=== PATIENT | male | born 1965 | race Caucasian/White ===

== ENCOUNTER 2019-11-30 21:45 | Inpatient (IN) | payer MEDICARE, BC ==
[~2019-11-30] VITALS: Ht 177.8 cm; Wt 91.6 kg
[2019-12-01] MEDS ORDERED: PROPOFOL 100 ML IV ONE ×2 (00:25→00:26)
[2019-12-01] MEDS ORDERED: PROPOFOL 100 ML IV PRN (00:39)
[2019-12-01] MEDS ORDERED: MIDAZOLAM HCL 50 MG in SODIUM CHLORIDE 0.9% 40 ML IV PRN (00:39)
[2019-12-01] MEDS ORDERED: DEXTROSE 50%, 50ML SYRINGE IVPush PRN (01:00)
[2019-12-01] MEDS ORDERED: GLUCAGON 1 MG IM PRN (01:00)
[2019-12-01] MEDS ORDERED: PHARMACY MAY ADJ FOR RENAL FX MC SCH (01:00)
[2019-12-01] MEDS ORDERED: DEXTROSE 4 GM TAB.CHEW PO PRN (01:00)
[2019-12-01] MEDS ORDERED: SCOPOLAMINE 1MG PATCH TD ONE (01:00)
[2019-12-01] MEDS ORDERED: PLEASE ENTER ALLERGIES MC SCH ×2 (01:00)
[2019-12-01] MEDS ORDERED: PLEASE ENTER HEIGHT AND WEIGHT MC SCH ×2 (01:00)
[2019-12-01] MEDS ORDERED: LIDOCAINE-MPF 1%, 2ML ENDO PRN (01:00)
[2019-12-01] MEDS ORDERED: SENNA/DOCUSATE TABLET NG PRN (01:00)
[2019-12-01] MEDS ORDERED: THIAMINE 100MG TABLET PO SCH (01:00)
[2019-12-01 01:25] LABS: BASOPHILS % (AUTO) 0 % (0-1); EOSINOPHILS # (AUTO) 0.05 x10^3/uL (0-0.4); EOSINOPHILS % (AUTO) 1 % (1-7); LYMPHOCYTES # (AUTO) 0.36 x10^3/uL (1-3.4); LYMPHOCYTES % (AUTO) 7 % (22-44); MD NO; MEAN CORPUSCULAR HGB CONC 34.8 g/dL (33.2-36.2); MEAN PLATELET VOLUME 6.6 fL (7.4-10.4); MONOCYTES # (AUTO) 0.32 x10^3/uL (0.2-0.8); MONOCYTES % (AUTO) 6 % (2-9); NEUTROPHILS # (AUTO) 4.74 x10^3/uL (1.8-6.8); NEUTROPHILS % (AUTO) 87 % (42-75); PLATELET COUNT 104 x10^3/uL (130-400); RED BLOOD COUNT 3.42 x10^6/uL (4.38-5.82); RED CELL DISTRIBUTION WIDTH 15.1 % (9.4-14.8)
[2019-12-01] MEDS ORDERED: SODIUM CHLORIDE 0.9% 1,000ML IVBOLUS ONE (01:30)
[2019-12-01] MEDS: FENTANYL PF 1,000 MCG in SODIUM CHLORIDE 0.9% 80 ML IV PRN ×2 (01:36→15:18)
[2019-12-01 01:38] LABS: ANION GAP 10 mmol/L (5-15); CALCIUM 8.1 mg/dL (8.5-10.1); CHLORIDE 113 mmol/L (98-107); CREATININE 1.12 mg/dL (0.7-1.3); TRIGLYCERIDES 162 mg/dL (50-200)
[2019-12-01 01:44] LABS: INTERNATIONAL NORMALIZED RATIO 1.02 (0.93-1.1); PROTHROMBIN TIME 10.5 Seconds (9.6-11.5)
[2019-12-01 02:19] LABS: BILIRUBIN, DIRECT 0.8 mg/dL (0.1-0.2)
[2019-12-01] MEDS: CHLORDIAZEPOXIDE 25 MG CAPSULE PO SCH ×5 (02:20→20:15)
[2019-12-01] MEDS: DIAZEPAM 5 MG/ML, 2ML IV SCH ×6 (02:20→23:37)
[2019-12-01 02:22] LABS: BILIRUBIN,INDIRECT 0.6 mg/dL (0.0-2.0); BILIRUBIN,TOTAL 1.4 mg/dL (0.2-1.0); TOTAL PROTEIN 6.1 g/dL (6.4-8.2)
[2019-12-01 02:32] VITALS: BP 105/75
[2019-12-01 04:00] VITALS: BP 112/81
[2019-12-01] MEDS: PROPOFOL 100 ML IV PRN ×4 (04:42→20:14)
[2019-12-01] MEDS ORDERED: MAGNESIUM SULFATE PMX 4GM/100M 100 ML IV ONE (07:30)
[2019-12-01] MEDS: THIAMINE 200 MG in SODIUM CHLORIDE 0.9% 50 ML IV SCH (08:31)
[2019-12-01] MEDS: SODIUM CHLORIDE FLUSH 10ML SYR IVF SCH ×2 (08:31→20:15)
[2019-12-01] MEDS: FOLIC ACID 1 MG TABLET PO SCH (08:31)
[2019-12-01] MEDS: PANTOPRAZOLE 40 MG IV IV SCH (08:31)
[2019-12-01] MEDS: ENOXAPARIN 40 MG/0.4 ML SQ SCH (11:12)
[2019-12-02] MEDS: PROPOFOL 100 ML IV PRN ×7 (00:38→23:31)
[2019-12-02 04:00] VITALS: BP 111/76
[2019-12-02 04:24] LABS: BASOPHILS # (AUTO) 0.02 x10^3/uL (0-0.1); BASOPHILS % (AUTO) 0 % (0-1); EOSINOPHILS # (AUTO) 0.13 x10^3/uL (0-0.4); EOSINOPHILS % (AUTO) 2 % (1-7); LYMPHOCYTES # (AUTO) 0.73 x10^3/uL (1-3.4); LYMPHOCYTES % (AUTO) 11 % (22-44); MD NO; MEAN CORPUSCULAR HEMOGLOBIN 34.2 pg (27.5-34.5); MEAN CORPUSCULAR HGB CONC 33.3 g/dL (33.2-36.2); MEAN PLATELET VOLUME 6.6 fL (7.4-10.4); MONOCYTES # (AUTO) 1.03 x10^3/uL (0.2-0.8); MONOCYTES % (AUTO) 15 % (2-9); NEUTROPHILS # (AUTO) 4.88 x10^3/uL (1.8-6.8); NEUTROPHILS % (AUTO) 72 % (42-75); PLATELET COUNT 131 x10^3/uL (130-400); RED BLOOD COUNT 3.44 x10^6/uL (4.38-5.82); RED CELL DISTRIBUTION WIDTH 14.9 % (9.4-14.8)
[2019-12-02 04:26] LABS: ANION GAP 10 mmol/L (5-15); CHLORIDE 109 mmol/L (98-107)
[2019-12-02 04:28] LABS: CREATININE 0.87 mg/dL (0.7-1.3)
[2019-12-02] MEDS: CHLORDIAZEPOXIDE 25 MG CAPSULE PO SCH ×3 (05:35→20:28)
[2019-12-02] MEDS: FENTANYL PF 1,000 MCG in SODIUM CHLORIDE 0.9% 80 ML IV PRN (06:23)
[2019-12-02] MEDS ORDERED: DIAZEPAM 5 MG/ML, 2ML ONE (07:20)
[2019-12-02 07:26] LABS: ALBUMIN 2.7 g/dL (3.4-5.0); BILIRUBIN, DIRECT 0.8 mg/dL (0.1-0.2)
[2019-12-02 07:28] LABS: BILIRUBIN,INDIRECT 0.7 mg/dL (0.0-2.0); BILIRUBIN,TOTAL 1.5 mg/dL (0.2-1.0); TOTAL PROTEIN 5.9 g/dL (6.4-8.2)
[2019-12-02] MEDS ORDERED: DIAZEPAM 5 MG/ML, 2ML IV SCH (07:30)
[2019-12-02] MEDS: FOLIC ACID 1 MG TABLET PO SCH (08:21)
[2019-12-02] MEDS: PANTOPRAZOLE 40 MG IV IV SCH (08:21)
[2019-12-02] MEDS: SODIUM CHLORIDE FLUSH 10ML SYR IVF SCH ×2 (08:21→20:29)
[2019-12-02] MEDS: THIAMINE 200 MG in SODIUM CHLORIDE 0.9% 50 ML IV SCH (09:01)
[2019-12-02] MEDS: ENOXAPARIN 40 MG/0.4 ML SQ SCH (11:46)
[2019-12-02] MEDS: POTASSIUM CHLORIDE 10% 40 MEQ/30 ML UDC PO SCH ×2 (11:46→20:27)
[2019-12-02] MEDS: OXYcodone IR 5MG TABLET PO SCH ×2 (14:49→20:32)
[2019-12-02] MEDS: DIAZEPAM 5 MG/ML, 2ML IV SCH ×2 (15:58→23:30)
[2019-12-03] MEDS: OXYcodone IR 5MG TABLET PO SCH ×4 (02:11→20:05)
[2019-12-03] MEDS: FENTANYL PF 1,000 MCG in SODIUM CHLORIDE 0.9% 80 ML IV PRN ×2 (02:12→21:46)
[2019-12-03] MEDS: PROPOFOL 100 ML IV PRN ×4 (02:50→20:55)
[2019-12-03 04:00] VITALS: BP 118/85
[2019-12-03 04:03] LABS: MEAN CORPUSCULAR HEMOGLOBIN 34.3 pg (27.5-34.5); MEAN CORPUSCULAR HGB CONC 33.4 g/dL (33.2-36.2); MEAN PLATELET VOLUME 6.6 fL (7.4-10.4); PLATELET COUNT 153 x10^3/uL (130-400); RED BLOOD COUNT 3.66 x10^6/uL (4.38-5.82)
[2019-12-03 04:04] LABS: ANION GAP 11 mmol/L (5-15); CHLORIDE 113 mmol/L (98-107); CREATININE 0.81 mg/dL (0.7-1.3)
[2019-12-03] MEDS: CHLORDIAZEPOXIDE 25 MG CAPSULE PO SCH ×3 (04:27→20:05)
[2019-12-03 05:52] LABS: BASOPHILS % (AUTO) 0 % (0-1); EOSINOPHILS % (AUTO) 2 % (1-7); LYMPHOCYTES # (AUTO) 0.43 x10^3/uL (1-3.4); LYMPHOCYTES % (AUTO) 7 % (22-44); MD SCAN; MONOCYTES # (AUTO) 0.85 x10^3/uL (0.2-0.8); MONOCYTES % (AUTO) 13 % (2-9); NEUTROPHILS # (AUTO) 5.19 x10^3/uL (1.8-6.8); NEUTROPHILS % (AUTO) 79 % (42-75)
[2019-12-03] MEDS ORDERED: ACETAMINOPHEN 650 MG/20.3 ML UDC ONE (07:32)
[2019-12-03] MEDS ORDERED: ACETAMINOPHEN 325 MG TABLET PO PRN (08:00)
[2019-12-03] MEDS: ENOXAPARIN 40 MG/0.4 ML SQ SCH (08:51)
[2019-12-03] MEDS: THIAMINE 200 MG in SODIUM CHLORIDE 0.9% 50 ML IV SCH (08:51)
[2019-12-03] MEDS: PANTOPRAZOLE 40 MG IV IV SCH (08:51)
[2019-12-03] MEDS: SODIUM CHLORIDE FLUSH 10ML SYR IVF SCH ×2 (08:51→20:06)
[2019-12-03] MEDS: FOLIC ACID 1 MG TABLET PO SCH (08:51)
[2019-12-03] MEDS: PIPERACILLIN/TAZO/PMX 3.375GM 50 ML IV SCH ×3 (09:02→20:06)
[2019-12-03 09:58] LABS: MICROSCOPIC INDICATED
[2019-12-03] MEDS ORDERED: SODIUM CHLORIDE 0.9%, 500ML IVBOLUS ONE (14:00)
[2019-12-03] MEDS ORDERED: LACTATED RINGERS 1,000 ML IVBOLUS ONE ×2 (16:00)
[2019-12-03] MEDS: PREGABALIN 25 MG CAPSULE PO SCH (20:06)
[2019-12-04] MEDS: OXYcodone IR 5MG TABLET PO SCH ×4 (02:32→18:25)
[2019-12-04] MEDS: PIPERACILLIN/TAZO/PMX 3.375GM 50 ML IV SCH ×4 (02:52→20:39)
[2019-12-04 04:29] VITALS: BP 90/57
[2019-12-04] MEDS: CHLORDIAZEPOXIDE 25 MG CAPSULE PO SCH ×3 (04:33→22:58)
[2019-12-04 04:52] LABS: ANION GAP 10 mmol/L (5-15); CALCIUM 7.9 mg/dL (8.5-10.1); CHLORIDE 113 mmol/L (98-107); CREATININE 0.99 mg/dL (0.7-1.3); TRIGLYCERIDES 307 mg/dL (50-200)
[2019-12-04 05:00] LABS: MEAN CORPUSCULAR HEMOGLOBIN 33.9 pg (27.5-34.5); MEAN CORPUSCULAR HGB CONC 33.3 g/dL (33.2-36.2); MEAN PLATELET VOLUME 6.3 fL (7.4-10.4); PLATELET COUNT 192 x10^3/uL (130-400); RED BLOOD COUNT 3.22 x10^6/uL (4.38-5.82); RED CELL DISTRIBUTION WIDTH 14.7 % (9.4-14.8)
[2019-12-04 05:54] LABS: MD YES
[2019-12-04 05:56] LABS: BANDS%(MANUAL) 9 % (0-7); EOS% (MANUAL) 3 % (1-7); LYMPH#(MANUAL) 1.01 x10^3/uL (1-3.4); LYMPHS% (MANUAL) 15 % (22-44); METAMYELOCYTES% (MANUAL) 3 % (0-1); MONOS#(MANUAL) 0.67 x10^3/uL (0.3-2.7); MONOS% (MANUAL) 10 % (2-9); MYELOCYTES# (MANUAL) 0.07 x10^3/uL (0-0); MYELOCYTES% (MANUAL) 1 % (0-0); SEG#(MANUAL) 3.95 x10^3/uL (1.8-6.8); SEGS% (MANUAL) 59 % (42-75)
[2019-12-04 05:57] LABS: <PLATELET ESTIMATE> ADEQUATE; <PLT MORPHOLOGY> NORMAL PLT MORPH; POLYCHROMASIA 1+
[2019-12-04 05:58] LABS: TOXIC GRAN 1+
[2019-12-04] MEDS ORDERED: POTASSIUM CHLORIDE 10% 40 MEQ/30 ML UDC PO ONE (07:00)
[2019-12-04] MEDS: PROPOFOL 100 ML IV PRN ×3 (08:28→17:00)
[2019-12-04] MEDS: PREGABALIN 25 MG CAPSULE PO SCH (08:46)
[2019-12-04] MEDS: SODIUM CHLORIDE FLUSH 10ML SYR IVF SCH ×2 (08:47→20:39)
[2019-12-04] MEDS: FOLIC ACID 1 MG TABLET PO SCH (08:47)
[2019-12-04] MEDS: PANTOPRAZOLE 40 MG IV IV SCH (08:47)
[2019-12-04] MEDS: DIAZEPAM 5 MG/ML, 2ML IV PRN ×2 (09:10→15:18)
[2019-12-04] MEDS: THIAMINE 200 MG in SODIUM CHLORIDE 0.9% 50 ML IV SCH (09:11)
[2019-12-04] MEDS: ENOXAPARIN 40 MG/0.4 ML SQ SCH (12:15)
[2019-12-04] MEDS: MIDAZOLAM 1 MG/ML, 2ML IVPush PRN ×3 (13:51→19:37)
[2019-12-04] MEDS: PREGABALIN 75 MG CAPSULE PO SCH ×2 (16:03→20:39)
[2019-12-04 19:50] VITALS: BP 103/66
[2019-12-05] MEDS: DIAZEPAM 5 MG/ML, 2ML IV PRN ×3 (00:03→19:29)
[2019-12-05] MEDS: OXYcodone IR 5MG TABLET PO SCH ×4 (01:57→19:34)
[2019-12-05] MEDS: PROPOFOL 100 ML IV PRN (01:59)
[2019-12-05] MEDS: PIPERACILLIN/TAZO/PMX 3.375GM 50 ML IV SCH (04:16)
[2019-12-05 04:17] VITALS: BP 99/71
[2019-12-05 04:27] LABS: MEAN CORPUSCULAR HEMOGLOBIN 34.7 pg (27.5-34.5); MEAN PLATELET VOLUME 6.4 fL (7.4-10.4); PLATELET COUNT 213 x10^3/uL (130-400); RED BLOOD COUNT 2.96 x10^6/uL (4.38-5.82); RED CELL DISTRIBUTION WIDTH 14.4 % (9.4-14.8)
[2019-12-05 04:32] LABS: ANION GAP 7 mmol/L (5-15); CALCIUM 8.7 mg/dL (8.5-10.1); CHLORIDE 110 mmol/L (98-107); CREATININE 1.07 mg/dL (0.7-1.3)
[2019-12-05] MEDS: MIDAZOLAM 1 MG/ML, 2ML IVPush PRN (04:46)
[2019-12-05 04:50] LABS: MD YES
[2019-12-05 04:52] LABS: BAND#(MANUAL) 0.24 x10^3/uL; BANDS%(MANUAL) 5 % (0-7); EOS% (MANUAL) 2 % (1-7); LYMPH#(MANUAL) 0.82 x10^3/uL (1-3.4); LYMPHS% (MANUAL) 17 % (22-44); METAMYELOCYTES# (MANUAL) 0.05 x10^3/uL (0-0); METAMYELOCYTES% (MANUAL) 1 % (0-1); MONOS#(MANUAL) 0.38 x10^3/uL (0.3-2.7); MONOS% (MANUAL) 8 % (2-9); MYELOCYTES# (MANUAL) 0.05 x10^3/uL (0-0); MYELOCYTES% (MANUAL) 1 % (0-0); SEG#(MANUAL) 3.17 x10^3/uL (1.8-6.8); SEGS% (MANUAL) 66 % (42-75)
[2019-12-05 04:53] LABS: TOXIC GRAN 1+
[2019-12-05 04:54] LABS: <PLATELET ESTIMATE> ADEQUATE; <PLT MORPHOLOGY> NORMAL PLT MORPH
[2019-12-05] MEDS: CHLORDIAZEPOXIDE 25 MG CAPSULE PO SCH (06:06)
[2019-12-05] MEDS: PANTOPRAZOLE 40 MG IV IV SCH (08:29)
[2019-12-05] MEDS: ENOXAPARIN 40 MG/0.4 ML SQ SCH (08:29)
[2019-12-05] MEDS: PREGABALIN 75 MG CAPSULE PO SCH ×3 (08:30→21:11)
[2019-12-05] MEDS: DEXMEDETOMIDINE 400 MCG in SODIUM CHLORIDE 0.9% 96 ML IV PRN ×3 (08:30→21:24)
[2019-12-05] MEDS: THIAMINE 200 MG in SODIUM CHLORIDE 0.9% 50 ML IV SCH (08:30)
[2019-12-05] MEDS ORDERED: LACTULOSE 20 GM/30 ML UDC PO PRN (09:00)
[2019-12-05] MEDS: FOLIC ACID 1 MG TABLET PO SCH (09:18)
[2019-12-05] MEDS: DOCUSATE 50 MG/5 ML, 10ML UDC NG SCH (09:22)
[2019-12-05] MEDS: SODIUM CHLORIDE FLUSH 10ML SYR IVF SCH ×2 (09:24→21:11)
[2019-12-05] MEDS ORDERED: MAGNESIUM SULFATE PMX 2GM/50ML 50 ML IV ONE (09:30)
[2019-12-05] MEDS ORDERED: POTASSIUM CHLORIDE 10% 20 MEQ/15 ML UDC PO ONE (09:30)
[2019-12-05] MEDS ORDERED: POTASSIUM PHOSPHATE 22 MEQ in SODIUM CHLORIDE 0.9% 500 ML IV ONE (10:00)
[2019-12-05] MEDS ORDERED: CHLORDIAZEPOXIDE 25 MG CAPSULE PO PRN (16:00)
[2019-12-05] MEDS: CHLORDIAZEPOXIDE 25 MG CAPSULE PO/NG SCH (16:17)
[2019-12-05] MEDS ORDERED: BISACODYL 10 MG SUPP PR PRN (21:00)
[2019-12-05] MEDS: SENNA 176 MG/5 ML ORAL SOL NG SCH (21:11)
[2019-12-06] MEDS: OXYcodone IR 5MG TABLET PO SCH ×4 (01:25→19:30)
[2019-12-06] MEDS: CHLORDIAZEPOXIDE 25 MG CAPSULE PO/NG SCH ×3 (01:25→20:00)
[2019-12-06] MEDS: DEXMEDETOMIDINE 400 MCG in SODIUM CHLORIDE 0.9% 96 ML IV PRN ×4 (03:16→20:28)
[2019-12-06 04:00] VITALS: BP 135/86
[2019-12-06 05:02] LABS: CHLORIDE 110 mmol/L (98-107)
[2019-12-06 05:08] LABS: ANION GAP 8 mmol/L (5-15); CALCIUM 8.7 mg/dL (8.5-10.1); CREATININE 0.93 mg/dL (0.7-1.3)
[2019-12-06 05:35] LABS: BASOPHILS # (AUTO) 0.03 x10^3/uL (0-0.1); BASOPHILS % (AUTO) 1 % (0-1); EOSINOPHILS % (AUTO) 2 % (1-7); LYMPHOCYTES # (AUTO) 0.48 x10^3/uL (1-3.4); LYMPHOCYTES % (AUTO) 10 % (22-44); MD NO; MEAN CORPUSCULAR HEMOGLOBIN 33.6 pg (27.5-34.5); MEAN CORPUSCULAR HGB CONC 33.2 g/dL (33.2-36.2); MEAN PLATELET VOLUME 6.4 fL (7.4-10.4); MONOCYTES # (AUTO) 0.66 x10^3/uL (0.2-0.8); MONOCYTES % (AUTO) 13 % (2-9); NEUTROPHILS # (AUTO) 3.77 x10^3/uL (1.8-6.8); NEUTROPHILS % (AUTO) 75 % (42-75); PLATELET COUNT 333 x10^3/uL (130-400); RED BLOOD COUNT 3.25 x10^6/uL (4.38-5.82)
[2019-12-06] MEDS: LEVOFLOXACIN/PMX 500MG/100ML 100 ML IV SCH (06:47)
[2019-12-06] MEDS: PREGABALIN 75 MG CAPSULE PO SCH ×3 (07:48→21:00)
[2019-12-06] MEDS: SODIUM CHLORIDE FLUSH 10ML SYR IVF SCH ×2 (07:49→21:05)
[2019-12-06] MEDS: DOCUSATE 50 MG/5 ML, 10ML UDC NG SCH (07:49)
[2019-12-06] MEDS: PANTOPRAZOLE 40 MG IV IV SCH (07:49)
[2019-12-06] MEDS: ENOXAPARIN 40 MG/0.4 ML SQ SCH (07:49)
[2019-12-06] MEDS: FOLIC ACID 1 MG TABLET PO SCH (07:50)
[2019-12-06] MEDS: MIDAZOLAM 1 MG/ML, 2ML IVPush PRN (08:59)
[2019-12-06] MEDS ORDERED: SODIUM CHLORIDE 0.9%, 500ML IVBOLUS ONE (10:30)
[2019-12-06] MEDS ORDERED: MIDAZOLAM 1 MG/ML, 5ML IVPush ONE (14:00)
[2019-12-06] MEDS: SENNA 176 MG/5 ML ORAL SOL NG SCH (21:00)
[2019-12-07] MEDS: OXYcodone IR 5MG TABLET PO SCH ×4 (01:30→19:19)
[2019-12-07 04:00] VITALS: BP 156/80
[2019-12-07] MEDS: DEXMEDETOMIDINE 400 MCG in SODIUM CHLORIDE 0.9% 96 ML IV PRN ×2 (04:49→17:09)
[2019-12-07 05:18] LABS: ANION GAP 6 mmol/L (5-15); CHLORIDE 111 mmol/L (98-107); CREATININE 1.12 mg/dL (0.7-1.3)
[2019-12-07 05:23] LABS: BASOPHILS # (AUTO) 0.04 x10^3/uL (0-0.1); BASOPHILS % (AUTO) 1 % (0-1); EOSINOPHILS # (AUTO) 0.05 x10^3/uL (0-0.4); EOSINOPHILS % (AUTO) 1 % (1-7); LYMPHOCYTES # (AUTO) 0.74 x10^3/uL (1-3.4); LYMPHOCYTES % (AUTO) 12 % (22-44); MD NO; MEAN CORPUSCULAR HEMOGLOBIN 34.2 pg (27.5-34.5); MEAN PLATELET VOLUME 6.2 fL (7.4-10.4); MONOCYTES # (AUTO) 0.97 x10^3/uL (0.2-0.8); MONOCYTES % (AUTO) 15 % (2-9); NEUTROPHILS # (AUTO) 4.56 x10^3/uL (1.8-6.8); NEUTROPHILS % (AUTO) 72 % (42-75); PLATELET COUNT 425 x10^3/uL (130-400); RED BLOOD COUNT 3.25 x10^6/uL (4.38-5.82); RED CELL DISTRIBUTION WIDTH 14.8 % (9.4-14.8)
[2019-12-07] MEDS: LEVOFLOXACIN/PMX 500MG/100ML 100 ML IV SCH (07:24)
[2019-12-07] MEDS: CHLORDIAZEPOXIDE 25 MG CAPSULE PO/NG SCH (08:00)
[2019-12-07] MEDS: PANTOPRAZOLE 40 MG IV IV SCH (08:24)
[2019-12-07] MEDS: ENOXAPARIN 40 MG/0.4 ML SQ SCH (08:24)
[2019-12-07] MEDS: SODIUM CHLORIDE FLUSH 10ML SYR IVF SCH ×2 (08:25→21:36)
[2019-12-07] MEDS: FOLIC ACID 1 MG TABLET PO SCH (09:00)
[2019-12-07] MEDS: PREGABALIN 75 MG CAPSULE PO SCH ×3 (09:00→21:00)
[2019-12-07] MEDS: DOCUSATE 50 MG/5 ML, 10ML UDC NG SCH (09:00)
[2019-12-07] MEDS: THIAMINE 200 MG in SODIUM CHLORIDE 0.9% 50 ML IV SCH (09:16)
[2019-12-07] MEDS ORDERED: DIAZEPAM 5 MG/ML, 2ML IV PRN (09:30)
[2019-12-07] MEDS ORDERED: cloniDINE 0.1MG PATCH TD SCH (12:00)
[2019-12-07] MEDS ORDERED: PHENOBARBITAL SODIUM 730 MG in SODIUM CHLORIDE 0.9% 50 ML IV ONE (13:00)
[2019-12-07] MEDS ORDERED: PHENOBARBITAL ETOH DETOX PER PHARMACY MC PRN (13:00)
[2019-12-07] MEDS: PHENOBARBITAL SODIUM 65 MG/ML, 1ML IM SCH (21:39)
[2019-12-08] MEDS: OXYcodone IR 5MG TABLET PO SCH ×4 (01:30→20:48)
[2019-12-08 04:00] VITALS: BP 125/89
[2019-12-08 04:52] LABS: MEAN CORPUSCULAR HEMOGLOBIN 33.5 pg (27.5-34.5); MEAN CORPUSCULAR HGB CONC 32.9 g/dL (33.2-36.2); MEAN PLATELET VOLUME 6.2 fL (7.4-10.4); PLATELET COUNT 456 x10^3/uL (130-400); RED BLOOD COUNT 3.35 x10^6/uL (4.38-5.82); RED CELL DISTRIBUTION WIDTH 14.5 % (9.4-14.8)
[2019-12-08 05:02] LABS: ALBUMIN 2.7 g/dL (3.4-5.0); ANION GAP 6 mmol/L (5-15); CALCIUM 9.1 mg/dL (8.5-10.1); CHLORIDE 112 mmol/L (98-107)
[2019-12-08 05:06] LABS: ALANINE AMINOTRANSFERASE 75 U/L (12-78); ALKALINE PHOSPHATASE 208 U/L (45-117); BILIRUBIN, DIRECT 0.5 mg/dL (0.1-0.2); BILIRUBIN,INDIRECT 0.3 mg/dL (0.0-2.0); BILIRUBIN,TOTAL 0.8 mg/dL (0.2-1.0); CREATININE 0.98 mg/dL (0.7-1.3); TOTAL PROTEIN 6.8 g/dL (6.4-8.2)
[2019-12-08 05:28] LABS: MD YES
[2019-12-08 05:31] LABS: ANISOCYTOSIS 1+; BAND#(MANUAL) 0.07 x10^3/uL; BANDS%(MANUAL) 1 % (0-7); BASOS#(MANUAL) 0.07 x10^3/uL (0-0.1); BASOS% (MANUAL) 1 % (0-1); EOS% (MANUAL) 3 % (1-7); LYMPH#(MANUAL) 0.91 x10^3/uL (1-3.4); LYMPHS% (MANUAL) 14 % (22-44); METAMYELOCYTES# (MANUAL) 0.33 x10^3/uL (0-0); METAMYELOCYTES% (MANUAL) 5 % (0-1); MONOS#(MANUAL) 0.65 x10^3/uL (0.3-2.7); MONOS% (MANUAL) 10 % (2-9); MYELOCYTES# (MANUAL) 0.13 x10^3/uL (0-0); MYELOCYTES% (MANUAL) 2 % (0-0); PROGRANULOCYTES# (MANUAL) 0.07 x10^3/uL (0-0); PROGRANULOCYTES% (MANUAL) 1 % (0-0); SEGS% (MANUAL) 63 % (42-75)
[2019-12-08 05:32] LABS: <PLATELET ESTIMATE> INCREASED; SMALL PLATELETS 1+
[2019-12-08] MEDS: DEXMEDETOMIDINE 400 MCG in SODIUM CHLORIDE 0.9% 96 ML IV PRN ×4 (06:19→21:12)
[2019-12-08] MEDS: LEVOFLOXACIN/PMX 500MG/100ML 100 ML IV SCH (06:32)
[2019-12-08] MEDS: PANTOPRAZOLE 40 MG IV IV SCH (09:06)
[2019-12-08] MEDS: PHENOBARBITAL SODIUM 65 MG/ML, 1ML IM SCH ×2 (09:17→20:47)
[2019-12-08] MEDS: ENOXAPARIN 40 MG/0.4 ML SQ SCH (09:17)
[2019-12-08] MEDS: FOLIC ACID 1 MG TABLET PO SCH (09:33)
[2019-12-08] MEDS: PREGABALIN 75 MG CAPSULE PO SCH ×3 (09:33→20:47)
[2019-12-08] MEDS: DOCUSATE 50 MG/5 ML, 10ML UDC NG SCH (09:33)
[2019-12-08] MEDS: SODIUM CHLORIDE FLUSH 10ML SYR IVF SCH ×2 (09:34→20:46)
[2019-12-08] MEDS: THIAMINE 200 MG in SODIUM CHLORIDE 0.9% 50 ML IV SCH (10:50)
--- NOTE | 2019-12-08 13:26 | NUR ---
Patient would benefit from ongoing skilled [facility] services in [facility] Addendum: 12/08/19 at 1327 by SANTA GODINEZ Amended: Links added.
[2019-12-09 03:22] VITALS: BP 136/94
[2019-12-09] MEDS: OXYcodone IR 5MG TABLET PO SCH ×4 (03:23→23:20)
[2019-12-09 05:09] LABS: MEAN CORPUSCULAR HEMOGLOBIN 33.6 pg (27.5-34.5); MEAN CORPUSCULAR HGB CONC 33.1 g/dL (33.2-36.2); RED BLOOD COUNT 3.42 x10^6/uL (4.38-5.82); RED CELL DISTRIBUTION WIDTH 14.6 % (9.4-14.8)
[2019-12-09 05:11] LABS: ANION GAP 7 mmol/L (5-15); CALCIUM 8.5 mg/dL (8.5-10.1); CHLORIDE 110 mmol/L (98-107); CREATININE 0.99 mg/dL (0.7-1.3)
[2019-12-09 05:45] LABS: MD YES; MEAN PLATELET VOLUME 6.1 fL (7.4-10.4); PLATELET COUNT 526 x10^3/uL (130-400)
[2019-12-09 05:49] LABS: BAND#(MANUAL) 0.09 x10^3/uL; BANDS%(MANUAL) 1 % (0-7); BASOS#(MANUAL) 0.09 x10^3/uL (0-0.1); BASOS% (MANUAL) 1 % (0-1); EOS#(MANUAL) 0.09 x10^3/uL (0.0-0.4); EOS% (MANUAL) 1 % (1-7); LYMPH#(MANUAL) 1.25 x10^3/uL (1-3.4); LYMPHS% (MANUAL) 14 % (22-44); METAMYELOCYTES# (MANUAL) 0.09 x10^3/uL (0-0); METAMYELOCYTES% (MANUAL) 1 % (0-1); MONOS#(MANUAL) 0.45 x10^3/uL (0.3-2.7); MONOS% (MANUAL) 5 % (2-9); SEG#(MANUAL) 6.85 x10^3/uL (1.8-6.8); SEGS% (MANUAL) 77 % (42-75)
[2019-12-09 05:50] LABS: ANISOCYTOSIS 1+; POLYCHROMASIA 1+
[2019-12-09 05:51] LABS: <PLATELET ESTIMATE> INCREASED; <PLT MORPHOLOGY> NORMAL PLT MORPH
[2019-12-09] MEDS: LEVOFLOXACIN/PMX 500MG/100ML 100 ML IV SCH (06:25)
[2019-12-09] MEDS: PANTOPRAZOLE 40 MG IV IV SCH (08:49)
[2019-12-09] MEDS: ENOXAPARIN 40 MG/0.4 ML SQ SCH (08:49)
[2019-12-09] MEDS: PHENOBARBITAL SODIUM 65 MG/ML, 1ML IM SCH (08:49)
[2019-12-09] MEDS: SODIUM CHLORIDE FLUSH 10ML SYR IVF SCH ×2 (08:50→23:21)
[2019-12-09] MEDS: THIAMINE 200 MG in SODIUM CHLORIDE 0.9% 50 ML IV SCH (08:50)
[2019-12-09] MEDS: PREGABALIN 75 MG CAPSULE PO SCH ×3 (09:21→23:20)
[2019-12-09] MEDS: FOLIC ACID 1 MG TABLET PO SCH (09:21)
[2019-12-09] MEDS: DOCUSATE 50 MG/5 ML, 10ML UDC NG SCH (09:21)
[2019-12-09] MEDS ORDERED: ZIPRASIDONE 20 MG INJ IM PRN (14:00)
[2019-12-09 18:49] VITALS: BP 113/73
[2019-12-10] MEDS: PHENOBARBITAL SODIUM 65 MG/ML, 1ML IM SCH ×3 (00:15→21:17)
[2019-12-10 00:41] VITALS: BP 108/69
[2019-12-10] MEDS: OXYcodone IR 5MG TABLET PO SCH ×4 (03:55→21:17)
[2019-12-10 04:31] LABS: BASOPHILS # (AUTO) 0.16 x10^3/uL (0-0.1); BASOPHILS % (AUTO) 2 % (0-1); EOSINOPHILS # (AUTO) 0.11 x10^3/uL (0-0.4); EOSINOPHILS % (AUTO) 2 % (1-7); LYMPHOCYTES # (AUTO) 1.14 x10^3/uL (1-3.4); LYMPHOCYTES % (AUTO) 16 % (22-44); MD NO; MEAN CORPUSCULAR HEMOGLOBIN 33.3 pg (27.5-34.5); MEAN CORPUSCULAR HGB CONC 32.6 g/dL (33.2-36.2); MEAN PLATELET VOLUME 6.2 fL (7.4-10.4); MONOCYTES # (AUTO) 0.99 x10^3/uL (0.2-0.8); MONOCYTES % (AUTO) 14 % (2-9); NEUTROPHILS # (AUTO) 4.65 x10^3/uL (1.8-6.8); NEUTROPHILS % (AUTO) 66 % (42-75); PLATELET COUNT 610 x10^3/uL (130-400); RED CELL DISTRIBUTION WIDTH 14.7 % (9.4-14.8)
[2019-12-10 04:40] LABS: ANION GAP 5 mmol/L (5-15); CALCIUM 8.5 mg/dL (8.5-10.1); CHLORIDE 109 mmol/L (98-107); CREATININE 1.15 mg/dL (0.7-1.3)
[2019-12-10 07:43] VITALS: BP 111/73
[2019-12-10] MEDS: SODIUM CHLORIDE FLUSH 10ML SYR IVF SCH ×2 (08:56→21:00)
[2019-12-10] MEDS: LEVOFLOXACIN/PMX 500MG/100ML 100 ML IV SCH (08:56)
[2019-12-10] MEDS: PANTOPRAZOLE 40 MG IV IV SCH (09:48)
[2019-12-10] MEDS: DOCUSATE 50 MG/5 ML, 10ML UDC NG SCH (09:49)
[2019-12-10] MEDS: ENOXAPARIN 40 MG/0.4 ML SQ SCH (09:49)
[2019-12-10] MEDS: PREGABALIN 75 MG CAPSULE PO SCH ×3 (09:49→21:17)
[2019-12-10] MEDS: FOLIC ACID 1 MG TABLET PO SCH (09:49)
[2019-12-10] MEDS: THIAMINE 200 MG in SODIUM CHLORIDE 0.9% 50 ML IV SCH (10:26)
[2019-12-10 14:42] VITALS: BP 126/83
[2019-12-10 18:44] VITALS: BP 109/72
[2019-12-10] MEDS: THIAMINE 100MG TABLET PO SCH (21:17)
[2019-12-10] MEDS: LACTOBACILLUS CHEW TABLET PO SCH (21:17)
[2019-12-11 00:54] VITALS: BP 145/87
[2019-12-11] MEDS: OXYcodone IR 5MG TABLET PO SCH ×4 (03:30→21:02)
[2019-12-11 06:30] LABS: BASOPHILS % (AUTO) 2 % (0-1); EOSINOPHILS # (AUTO) 0.12 x10^3/uL (0-0.4); EOSINOPHILS % (AUTO) 2 % (1-7); LYMPHOCYTES # (AUTO) 0.96 x10^3/uL (1-3.4); LYMPHOCYTES % (AUTO) 16 % (22-44); MD NO; MEAN CORPUSCULAR HEMOGLOBIN 33.7 pg (27.5-34.5); MEAN CORPUSCULAR HGB CONC 33.2 g/dL (33.2-36.2); MONOCYTES # (AUTO) 0.64 x10^3/uL (0.2-0.8); MONOCYTES % (AUTO) 11 % (2-9); NEUTROPHILS # (AUTO) 4.24 x10^3/uL (1.8-6.8); NEUTROPHILS % (AUTO) 70 % (42-75); PLATELET COUNT 490 x10^3/uL (130-400); RED BLOOD COUNT 3.61 x10^6/uL (4.38-5.82); RED CELL DISTRIBUTION WIDTH 14.7 % (9.4-14.8)
[2019-12-11 06:43] LABS: ALANINE AMINOTRANSFERASE 111 U/L (12-78); ALBUMIN 2.6 g/dL (3.4-5.0); ANION GAP 5 mmol/L (5-15); CALCIUM 8.5 mg/dL (8.5-10.1); CHLORIDE 106 mmol/L (98-107); CREATININE 0.91 mg/dL (0.7-1.3)
[2019-12-11 06:54] LABS: ALKALINE PHOSPHATASE 193 U/L (45-117); BILIRUBIN,TOTAL 0.5 mg/dL (0.2-1.0); TOTAL PROTEIN 6.3 g/dL (6.4-8.2)
[2019-12-11 07:03] VITALS: BP 100/63
[2019-12-11] MEDS: ENOXAPARIN 40 MG/0.4 ML SQ SCH (08:40)
[2019-12-11] MEDS: LACTOBACILLUS CHEW TABLET PO SCH ×3 (08:41→20:58)
[2019-12-11] MEDS: PREGABALIN 75 MG CAPSULE PO SCH ×3 (08:41→20:59)
[2019-12-11] MEDS: FOLIC ACID 1 MG TABLET PO SCH (08:41)
[2019-12-11] MEDS: POTASSIUM CHLORIDE 20 MEQ TAB.ER.PRT PO SCH ×3 (08:41→20:59)
[2019-12-11] MEDS: THIAMINE 100MG TABLET PO SCH ×2 (08:41→20:58)
[2019-12-11] MEDS: SODIUM CHLORIDE FLUSH 10ML SYR IVF SCH ×2 (08:42→20:59)
[2019-12-11] MEDS ORDERED: LEVOFLOXACIN/PMX 500MG/100ML 100 ML IV SCH (09:00)
[2019-12-11] MEDS: PHENOBARBITAL SODIUM 65 MG/ML, 1ML IM SCH (10:32)
[2019-12-11 12:22] VITALS: BP 112/73
[2019-12-11 19:40] VITALS: BP 119/71
[2019-12-11] MEDS: PHENOBARBITAL 20 MG/5 ML ORAL SOL PO SCH (20:59)
[2019-12-12 01:26] VITALS: BP 124/76
[2019-12-12] MEDS: POTASSIUM CHLORIDE 20 MEQ TAB.ER.PRT PO SCH (02:29)
[2019-12-12] MEDS: OXYcodone IR 5MG TABLET PO SCH ×2 (03:13→09:30)
[2019-12-12 05:35] LABS: BASOPHILS # (AUTO) 0.07 x10^3/uL (0-0.1); BASOPHILS % (AUTO) 1 % (0-1); EOSINOPHILS # (AUTO) 0.16 x10^3/uL (0-0.4); EOSINOPHILS % (AUTO) 3 % (1-7); LYMPHOCYTES # (AUTO) 1.04 x10^3/uL (1-3.4); LYMPHOCYTES % (AUTO) 16 % (22-44); MD NO; MEAN CORPUSCULAR HEMOGLOBIN 33.8 pg (27.5-34.5); MEAN CORPUSCULAR HGB CONC 33.4 g/dL (33.2-36.2); MEAN PLATELET VOLUME 6.1 fL (7.4-10.4); MONOCYTES # (AUTO) 0.65 x10^3/uL (0.2-0.8); MONOCYTES % (AUTO) 10 % (2-9); NEUTROPHILS # (AUTO) 4.43 x10^3/uL (1.8-6.8); NEUTROPHILS % (AUTO) 70 % (42-75); PLATELET COUNT 612 x10^3/uL (130-400); RED BLOOD COUNT 3.33 x10^6/uL (4.38-5.82); RED CELL DISTRIBUTION WIDTH 14.7 % (9.4-14.8)
[2019-12-12 05:49] LABS: ALBUMIN 2.8 g/dL (3.4-5.0); ANION GAP 5 mmol/L (5-15); CALCIUM 8.8 mg/dL (8.5-10.1); CHLORIDE 107 mmol/L (98-107)
[2019-12-12 05:53] LABS: ALANINE AMINOTRANSFERASE 133 U/L (12-78); ALKALINE PHOSPHATASE 204 U/L (45-117); BILIRUBIN,TOTAL 0.5 mg/dL (0.2-1.0); CREATININE 0.94 mg/dL (0.7-1.3); TOTAL PROTEIN 6.6 g/dL (6.4-8.2)
[2019-12-12 07:14] VITALS: BP 130/91
[2019-12-12] MEDS: LACTOBACILLUS CHEW TABLET PO SCH (08:22)
[2019-12-12] MEDS: FOLIC ACID 1 MG TABLET PO SCH (08:22)
[2019-12-12] MEDS: THIAMINE 100MG TABLET PO SCH (08:22)
[2019-12-12] MEDS: PREGABALIN 75 MG CAPSULE PO SCH (08:22)
[2019-12-12] MEDS: SODIUM CHLORIDE FLUSH 10ML SYR IVF SCH (08:23)
[2019-12-12] MEDS: LEVOFLOXACIN 500 MG TABLET PO SCH ×2 (08:23→08:24)
[2019-12-12] MEDS: PHENOBARBITAL 20 MG/5 ML ORAL SOL PO SCH (08:24)
[2019-12-12] MEDS: ENOXAPARIN 40 MG/0.4 ML SQ SCH (09:30)
[2019-12-12] MEDS ORDERED: PREG75CA PO (09:50)
[2019-12-12] MEDS ORDERED: THIA100T67 PO (09:50)
[2019-12-12] MEDS ORDERED: FOLI-17 PO (09:50)
[2019-12-12] MEDS ORDERED: MULT-449 PO (09:50)
[2019-12-12] MEDS ORDERED: ACID1TAB7 PO (09:50)
[2019-12-12 13:17] VITALS: BP 127/82
[2019-12-12] MEDS ORDERED: PHENOBARBITAL 20 MG/5 ML ORAL SOL PO SCH (21:00)
== END 2019-12-12 14:26 | disposition home or self-care (01) | DRG 207 ==
LOC: CCU 12-01 00:18 → 4WST 12-09 18:19 → DCLOUNGE 12-12 14:05
PROVIDERS: ADMIT Family Medicine; ATTEND Internal Medicine
PROC: 5A1955Z Respiratory Ventilation, Greater than 96 Consecutive Hours (ICD-10-PCS; principal; 2019-12-01)
PROC: 0BH18EZ Insertion of Endotracheal Airway into Trachea, Via Natural or Artificial Opening Endoscopic (ICD-10-PCS; 2019-12-01)
PROC: 0T9B70Z Drainage of Bladder with Drainage Device, Via Natural or Artificial Opening (ICD-10-PCS; 2019-12-03)
PROC: 02HV33Z Insertion of Infusion Device into Superior Vena Cava, Percutaneous Approach (ICD-10-PCS; 2019-12-04)
PROC: B548ZZA Ultrasonography of Superior Vena Cava, Guidance (ICD-10-PCS; 2019-12-04)
DX: J96.01 Acute respiratory failure with hypoxia (principal); G93.41 Metabolic encephalopathy; J13 Pneumonia due to Streptococcus pneumoniae; F10.231 Alcohol dependence with withdrawal delirium; E87.4 Mixed disorder of acid-base balance; J98.11 Atelectasis; D53.9 Nutritional anemia, unspecified; D69.6 Thrombocytopenia, unspecified; D75.89 Other specified diseases of blood and blood-forming organs; E83.42 Hypomagnesemia; E87.6 Hypokalemia; G89.29 Other chronic pain; I10 Essential (primary) hypertension; K70.10 Alcoholic hepatitis without ascites; M48.00 Spinal stenosis, site unspecified; I95.9 Hypotension, unspecified; M54.9 Dorsalgia, unspecified; R13.10 Dysphagia, unspecified; R56.9 Unspecified convulsions; Z85.528 Personal history of other malignant neoplasm of kidney; Z90.2 Acquired absence of lung [part of]; Z90.5 Acquired absence of kidney
CPT/HCPCS: 36415; 36573; 36600; 71045; 72148; 74018; 80048; 80053; 80074; 80076; 81001; 82533; 82550; 82803; 83735; 84100; 84145; 84443; 84478; 85025; 85610; 85730; 87040; 87070; 87081; 87086; 87181; 87184; 87205; 94002; 94003; 94640; G0378; J1650; J1956; J2250; J2543; J2560; J2704; J3010; J3360; J3411; C1751; C9113; J3475; J7030; J7040; J7120